=== PATIENT | female | born 1970 | race Caucasian/White ===

== ENCOUNTER → 2020-07-27 11:23 | Outpatient (CLI) | payer OTHER, SELFPAY ==
--- NOTE | 2020-07-27 | DI.MRI.S_ITS ---
PROCEDURE: MR LUMBAR SPINE WO CON INDICATIONS: Spondylolisthesis, lumbar region TECHNIQUE: Noncontrast sagittal T1 spin echo and T2 fast echo, sagittal STIR, axial T1 and T2 fast spin echo through the lumbar spine. In cases with scoliosis, additional coronal T2 fast spin echo may be performed. COMPARISON: [facility] [place], CR, XR LUMBAR SPINE 2 OR 3 VIEWS, 07/15/2020, 15:58. FINDINGS: Image quality: Excellent. Alignment and Curvature: Trace degenerative retrolisthesis of L5 on S1. Trace degenerative anterolisthesis of L4 on L5. Bone Marrow: Marrow is of normal overall signal. No acute vertebral body compression fractures. Spinal Cord: Conus medullaris terminates at the L1 level. Visualized cord demonstrates normal signal and size. Paraspinous Soft Tissues: No paravertebral masses. T12-L1: No canal stenosis or foraminal stenosis. L1-L2: No canal stenosis or foraminal stenosis. L2-L3: Mild posterior disc bulge without canal stenosis. Right foraminal annulus tear associated with disc bulge and mild right foraminal narrowing. L3-L4: Posterior annulus tear associated with moderate diffuse disc bulge. Minimal superimposed right paracentral disc protrusion. Mild facet hypertrophy. No central canal stenosis. Bilateral foraminal disc bulges. Mild bilateral foraminal narrowing. L4-L5: Diffuse disc bulge. Trace anterolisthesis of L4 on L5. Prominent bilateral facet hypertrophy. Moderate canal stenosis. Mild left foraminal stenosis. L5-S1: Severe disc height loss. Mild posterior disc bulge. Facet hypertrophy. No significant canal stenosis. Moderate bilateral foraminal narrowing with mild flattening deformity on the exiting bilateral L5 nerve roots. IMPRESSION: 1. There is a right foraminal annulus tear at L2-L3. There is a posterior annulus tear at L3-L4. 2. There is moderate canal stenosis at L4-L5. 3. There is prominent bilateral facet arthropathy at L4-L5. There is facet arthropathy at L5-S1 as well. 4. Moderate bilateral foraminal narrowing at L5-S1. Dictated by: Jayden Cam M.D. on 07/28/2020 at 9:27 Approved by: Jayden Cam M.D. on 07/28/2020 at 9:34
== END ==
PROVIDERS: Referring Provider Orthopaedic Surgery Orthopaedic Surgery of the Spine; Visit Provider Orthopaedic Surgery Orthopaedic Surgery of the Spine
DX: M43.16 Spondylolisthesis, lumbar region (principal); M48.061 Spinal stenosis, lumbar region without neurogenic claudication; M48.07 Spinal stenosis, lumbosacral region; M47.816 Spondylosis without myelopathy or radiculopathy, lumbar region; M47.817 Spondylosis without myelopathy or radiculopathy, lumbosacral region
CPT/HCPCS: 72148

== ENCOUNTER → 2020-09-02 12:05 | Outpatient (CLI) | payer OTHER, SELFPAY ==
[2020-09-02 12:36] LABS: Add Manual Diff / Slide Review NO; Basophils Absolute Auto 0 /uL (0-100); Basophils Percent Auto 0.6 % (0-2); Eosinophils Absolute Auto 100 /uL (0-450); Eosinophils Percent Auto 0.8 % (2-4); Hematocrit 36.3 % (36-46); Lymphocytes Absolute Auto 2400 /uL (1100-4500); Lymphocytes Percent Auto 36.7 % (25-40); Mean Corpuscular HGB Conc 33.1 % (30-36); Mean Corpuscular Hemoglobin 28.7 PG (26-34); Mean Corpuscular Volume 86.6 fL (80-100); Monocytes Absolute Auto 500 /uL (0-900); Monocytes Percent Auto 7.2 % (3-14); Neutrophils Absolute Auto 3600 /uL (1500-7000); Neutrophils Percent Auto 54.7 % (50-75); Platelet Count 289 X10^3/uL (150-400); Red Blood Cell Count 4.19 X10^6/uL (4.0-5.2); Red Cell Distribution Width 13.8 % (11.6-14.8); White Blood Cell Count 6.5 X10^3/uL (4.5-11.0)
[2020-09-02 13:26] LABS: BUN Creatinine Ratio 24.1 (6-22); Blood Urea Nitrogen 13 mg/dL (7-17); Calcium 9.7 mg/dL (8.4-10.2); Carbon Dioxide 28 mmol/L (22-32); Chloride 103 mmol/L (98-107); Estimated Glomerular Filt Rate > 60.0 mL/min (>60); Glucose 91 mg/dL (70-100); HEMOLYSIS < 15 (0-50); Potassium 4.7 mmol/L (3.4-5.1); Sodium 139 mmol/L (137-145)
== END ==
PROVIDERS: Referring Provider Orthopaedic Surgery Orthopaedic Surgery of the Spine; Visit Provider Orthopaedic Surgery Orthopaedic Surgery of the Spine
DX: Z01.818 Encounter for other preprocedural examination (principal); Z01.812 Encounter for preprocedural laboratory examination
CPT/HCPCS: 36415; 80048; 85025; 93005

== ENCOUNTER → 2020-09-08 09:18 | Outpatient (CLI) | payer OTHER, SELFPAY ==
[2020-09-08 11:43] LABS: COVID19 -Nasal RAPID Negative (Negative)
== END ==
PROVIDERS: Visit Provider Student in an Organized Health Care Education/Training Program
DX: Z01.812 Encounter for preprocedural laboratory examination (principal); Z20.822 Contact with and (suspected) exposure to COVID-19
CPT/HCPCS: 87635

== ENCOUNTER 2020-09-10 11:02 | Inpatient (IN) | payer OTHER, SELFPAY ==
[2020-09-03 09:45] VITALS: BMI 28.0
[2020-09-10] VITALS (23 sets, daily range): BP systolic 108–153; BP diastolic 75–99; PULSE 81–114; RESP 6–133; TEMP 36.1–37.1; O2SAT 90–99; BMI 28.0
[2020-09-10] MEDS: LACTATED RINGERS 1,000 ML 42 ML IV ×3 (11:32→18:16)
[2020-09-10] MEDS: ACETAMINOPHEN 325 MG TABLET 975 MG PO (11:41)
--- NOTE | 2020-09-10 12:06 | PM.PREOP ---
Pre-operative Note COVID-19 COVID-19 status: Negative Result date/Date tested (Pos, Neg/Pending): 09/08/20 Interval Note History & Physical reviewed/Exam performed by Physician: Yes Changes to H&P: No
[2020-09-10] MEDS: CEFAZOLIN 2 GM/100 ML FROZ.PIGGY IV (12:15)
--- NOTE | 2020-09-10 13:02 | SUR.OPER ---
Prone on spine table, head in foam head support, padded chest and pelvic supports, gel pad at knees, lower legs supported by pillows; nipples, genitalia and toes free of pressure, arms secured on foam padded arm boards at <90 degrees abduction. Tape over blanket at thigh secured to table.
[2020-09-10] MEDS: BUPIVACAINE 0.25% W/ EPI 30 ML VIAL INJ (13:32)
[2020-09-10] MEDS: BUPIVACAINE LIPOSOME 266 MG/20 ML VIAL INJ (13:33)
--- NOTE | 2020-09-10 16:02 | DI.RAD.S_ITS ---
PROCEDURE: XR LUMBAR SPINE 2-3V INDICATIONS: L4-5, L5-S1 TLIF TECHNIQUE: Low resolution intraoperative spot films of the lower lumbar spine were obtained COMPARISON: None. FINDINGS: Low resolution imaging shows posterior betsy and screw instrumentation at L4, L5 and S1 with interbody graft cages positioned at L4-5 and L5-S1. IMPRESSION: L4-5 and L5-S1 discectomy and posterior instrumentation intraoperative imaging Dictated by: Michael Klein M.D. on 09/10/2020 at 17:38 Approved by: Michael Klein M.D. on 09/10/2020 at 17:42
[2020-09-10] MEDS: CEFAZOLIN 1 GM VIAL 2 GM IV (16:19)
--- NOTE | 2020-09-10 16:24 | PM.OP.1 ---
Operative Date/Time/Diagnoses Date of procedure: 09/10/20 Time of procedure: 13:02 Pre-op diagnosis: 1. L4-5, L5-S1 spinal stenosis 2. L4-5, L5-S1 spondylosis with radiculopathy Post-op diagnosis: same Procedure & Clinicians Procedure: 1. L4-5, L5-S1 Postero-lateral and posterior interbody fusion 2. L4-5, L5-S1 interbody cage placement. 3. L4-5, L5-S1 decompressive laminectomy with bilateral facetecomies 4. L4-5, L5-S1 Posterior segmental instrumentation 5. [place] of bone marrow from iliac crest 6. Utilization of microsurgical technique and operating microscope Same procedure as scheduled: Yes Indications: Patient has been having chronic back pain and worsening lumbar radiculopathy. Patient failed multiple conservative management with worsening pain weakness and numbness in her lower extremity. Patient has been having difficulty performing activity of daily living. After discussing risks benefits of treatment options, patient elected proceed with surgery. Surgeon: Ayaka Payan Convertible Top Installer: Herbie Damon Click Yes if Unassisted: No Anesthesia Type: General Operative Notes Closure Type: primary Specimen(s): none sent Prosthetic devices, grafts, tissues, transplants, or devices: Globus revolve screws, Rise cages Applied: catheter Estimated Blood Loss (mL): 200 Blood products transfused: none Procedure in detail: Patient was seen in the preoperative area. Risks and benefits of the surgery was discussed with the patient. Informed consent was obtained from the patient and placed in the chart. Surgical site was marked. Patient was taken to the operative room. General anesthesia was administered. Prophylactic antibiotic was given to the patient less than 30 min before the incision was made. Patient was placed into a prone position on the Farooq table. Patient's back was then prepped and draped in the sterile fashion. Time-out was performed at this time. Using AP and lateral C-arm imaging the interval between L4-S1 was identified and marked on patient's back. A 2 inch incision 2 in from midline was made on the right side first. The fascia was incised in line with skin incision. Globus MARS retractors was placed inside the incision and docked onto the L4 and L5 lamina. Using microsurgical technique and operating microscope, a L4 and L5 laminectomy and L4-5 L5-S1 facetectomy was performed using a Kerrison rongeur. During the process of decompression more than 75% of bilateral L4-5 L5-S1 facets were removed in order to decompress the spinal canal and the lateral recess. The L4-5 L5-S1 level was grossly unstable after the decompression was completed and requiring the fusion procedure. The disc space at L4-5, L5-S1 was identified. And a total diskectomy was performed at L4-5, L5-S1 level. The endplates were decorticated using a rasp and shaver. The total diskectomy and decortication was performed at L4-5, L5-S1 level in order to to accomplish a L4-5, L5-S1 fusion. The local bone from the laminectomy and facetectomy was saved for local bone grafting. After the total diskectomy and decortication was completed, Trifecta bone graft material was combined with local bone that was harvested earlier. At this time, a separate skin is incision was made over the iliac crest. A Jamshidi needle was inserted into the iliac crest through a separate skin incision. 5 cc of bone marrow aspiration was obtained through the separate skin incision using a Jamshidi needle from the iliac crest. The bone marrow aspiration was combined with local bone and the Trifecta bone grafting material. The bone grafting material was placed into the L4-5, L5-S1 interbody space along with two cages, one expandable cage at each level. The cages were expanded to their maximum height using the torque limiting screwdriver. At this time a mirror image incision was made on the left side. The fascia was incised in line with the skin incision. Globus MARS retractor was inserted and docked onto the L4-5, L5-S1 posterolateral gutter. Using the power drill, posterior-lateral decortication was performed at L4-5, L5-S1 level until bleeding cortical bone was identified. The remaining bone grafting material was placed into the L4-5 L5-S1 posterior lateral gutter he order to accomplish posterolateral fusion at the L4-5 L5-S1 levels. Using the double C-arm technique, pedicle screws were placed into the L4, L5, S1 pedicles bilaterally. This was done by placing the Jamshidi needle into the pedicles, then placing the guidewires over the Jamshidi needle, and finally placing the cannulated screws over the guidewires bilaterally. After the pedicle screws were placed, 2 titanium rods was locked into the heads of the pedicle screws using locking caps and torque limiting screwdriver. Total 6 pedicles screws were placed. After all the hardware was placed, and confirmed with AP and lateral C-arm imaging, the wound was then irrigated with sterile normal saline and packed with Ray-Nicolas gauze for 3 min to accomplish hemostasis. After the gauze was removed the deep fascia was closed with #1 Vicryl suture. The subcutaneous layer was closed with 2-0 Vicryl. The skin was closed with skin kanchan. Patient tolerated the procedure well. There were no complications. Complications: none Post-operative Condition: stable Disposition: PACU Plan for aftercare: Admit to inpatient hospital
[2020-09-10] MEDS: diphenhydrAMINE 50 MG/ML VIAL 25 MG IV (16:51)
[2020-09-10] MEDS: HYDROMORPHONE 2 MG INJ IV ×4 (16:57→17:59)
[2020-09-10] MEDS: fentaNYL 100 MCG/2 ML INJ IV (17:15)
[2020-09-10] MEDS: hydrOXYzine pamoate 25 MG CAPSULE PO ×2 (17:23→20:37)
[2020-09-10] MEDS: OXYCODONE IR 5 MG TABLET PO (17:23)
[2020-09-10] MEDS: LORazepam 2 MG/ML INJ 0.5 MG IV (17:50)
--- NOTE | 2020-09-10 18:04 | SUR.PHASEI ---
Providing coverage for DISTRIBUTION ESTIMATOR to call report and break relief. Pt sleeping intermittently, arouses easily to voice.
--- NOTE | 2020-09-10 18:16 | SUR.PHASEI ---
Addendum entered by Sarah Way R.N. 09/10/20 18:19: Pauly Gupta RN requested pt to be signed out (she did not take a break). Pt stable, transported on O2. Original Note: entered 2nd IV bag - see anesthesia record for time hung. MAR would not permit the time hung to be edited. Preparing to transport by Pauly Gupta RN. She will complete the charting.
[2020-09-10] MEDS: SODIUM CHLORIDE 0.9% 1,000 ML 100 ML IV (19:13)
[2020-09-10] MEDS: HYDROMORPHONE 0.5 MG INJ IV (20:37)
[2020-09-10] MEDS: lamoTRIgine 100 MG TABLET 200 MG PO (20:49)
[2020-09-10] MEDS: SERTRALINE 50 MG TABLET 100 MG PO (20:49)
[2020-09-10] MEDS: QUETIAPINE 100 MG TABLET 600 MG PO (20:49)
[2020-09-10] MEDS: SENNOSIDES 8.6 MG TABLET 17.2 MG PO (20:49)
[2020-09-10] MEDS: DOCUSATE 100 MG CAPSULE PO (20:50)
[2020-09-10] MEDS: OXYCODONE IR 5 MG TABLET 10 MG PO (21:00)
--- NOTE | 2020-09-10 21:13 | PC.NURSE ---
Addendum entered by Loly Tate R.N. 09/10/20 22:34: After numerous repositions patient is now sleeping. O2 sensor on, sats 93% on RA while sleeping. Addendum entered by Loly Tate R.N. 09/10/20 22:11: Patient still in some pain 7/10 and crying. Gave po ativan to help her relax. Also had patient sit on the edge of the bed for a few minutes to see if that would help relieve her back discomfort. Got her repositioned back into the bed, patient a little more comfortable. Original Note: Patient up from PACU 1820, patient drowsy but woke easily. Drsg CDI. Patient able to sleep for a few hours after getting multiple meds down in pacu to help with pain. Patient recently woke up in severe pain 5-8/10. Started with ivp dilaudid but didnt really help much. Patient crying. Repositioned per patients request and applied ice. Po oxycodone given and will reevaluate pain in a few minutes. Patient has been A&O, calm and cooperative.
[2020-09-10] MEDS: LORazepam 0.5 MG TABLET 1 MG PO (21:37)
[2020-09-11] MEDS: hydrOXYzine pamoate 25 MG CAPSULE PO ×4 (00:28→20:20)
[2020-09-11] MEDS: OXYCODONE IR 5 MG TABLET 10 MG PO ×5 (00:28→16:19)
[2020-09-11] MEDS: LORazepam 0.5 MG TABLET 1 MG PO ×4 (00:28→16:27)
[2020-09-11] MEDS: HYDROMORPHONE 0.5 MG INJ IV ×6 (00:29→20:19)
[2020-09-11] MEDS: CEFAZOLIN 1 GM VIAL 2 GM IV ×2 (00:30→07:36)
[2020-09-11 01:10] VITALS: BP 123/71; PULSE 88; RESP 16; TEMP 36.3; O2SAT 93
[2020-09-11] MEDS: ACETAMINOPHEN 325 MG TABLET 650 MG PO ×3 (03:15→20:20)
--- NOTE | 2020-09-11 04:26 | PC.NURSE ---
School Cleaner Note-Patient was sleeping until 0030, woke up crying, restless, rating pain 9-10/10. Medicated with 0.5mg IV Dilaudid Q2HR prn, 10mg oxycocone Q3hr prn, 25mg PO Vistaril, 1mg PO Ativan prn as ordered in [place], ice packs applied to back drsg, multiple attempts to reposition with log rolls and keeping torso from twisting. Drsg reinforced x2 d/t rolling from frequent movement. CMS intact, VSS, Tian catheter patent. Dr Payan notified at 0340, informed about uncontrolled pain despite prn pain medications ordered. New orders received for addition pain coverage, see [place].
[2020-09-11] MEDS: OXYCODONE ER 10 MG TAB PO ×2 (05:40→20:37)
[2020-09-11] MEDS: diazePAM 5 MG TABLET PO ×3 (05:41→14:46)
[2020-09-11 05:50] VITALS: BP 123/64; PULSE 90; RESP 19; TEMP 36.2; O2SAT 96
[2020-09-11] MEDS: DOCUSATE 100 MG CAPSULE PO ×2 (07:45→20:36)
[2020-09-11 08:00] VITALS: BP 119/82; PULSE 109; RESP 18; TEMP 36.2; O2SAT 98
--- NOTE | 2020-09-11 08:51 | CM.DANOTE ---
DCP: Case received, EMR reviewed and met with patient. , Julia, was also at bedside. Introduced self and role. Was able to obtain information regarding patient's baseline activity status prior to her surgery. DCP assessment completed with information currently available. Patient is a 50 year old male who admitted yesterday morning to the care of the orthopedic team. PCP: Dr. Mcgowan/[facility]. Payer: confirmed: [facility]. Patient came to the hospital for a surgical procedure. She had L4-5, L5-S1 posteo-lateral interbody fusion. Patient has history of spondylolisthesis of the lumbar region. Met briefly with patient and , Julia in the room. She was awake laying in bed, having discomfort. Confirmed that her and her reside in [place]. He is in the [employer], [facility]. She has a FWW with her, but stated she had not used prior to surgery. She has been independent at her baseline. P: DCP to continue to follow. Will see how she does with P.T. The goal is for her to go home when she is medically stable and cleared by P.T. Trish Ellis RN/Chief Underwriter
--- NOTE | 2020-09-11 09:20 | PT.IIE ---
Current Diagnoses Spondylolisthesis, lumbar region (09/10/20) Spinal stenosis, lumbar region without neurogenic claudication (09/10/20) Surgery Performed Operation Date: 09/10/20 13:15 Actual Procedures p L4-5, L5-S1 TLIF with posterior instrumentation - Ayaka Payan MD Surgical History (Last Reviewed 09/11/20 @ 10:26 by Herbie Damon PA-C) History of hysterectomy (2005) Hx of appendectomy Hx of bariatric surgery (2009) Hx of lithotripsy Hx of umbilical hernia repair Medical History (Last Reviewed 09/11/20 @ 10:26 by Herbie Damon PA-C) Arthritis Depression Easy bruisability Ectopic GI bleed (2015) Iron deficiency anemia Kidney stones Pneumonia PTSD (post-traumatic stress disorder) Physical Therapy Inpatient Evaluation/Re-Eval M1 PT/OT-IP Prior Functional Status Start: 09/11/20 12:59 Freq: NEEDED Status: Active Protocol: Document 09/11/20 09:20 AB (Rec: 09/11/20 13:09 [email or web address]) Medical Review Prior Functional Status Medical History Reviewed Yes Communication able to make needs known Mobility and Gait stated that she is independent with all mobilities and ambulation without AD Social History Household Members spouse,children Living Arrangements House Number of Floors (Floors) 3 or More Floors Number of Stairs To Enter/Railing? 3 platform steps to enter the house 8 steps with L rail ascending to bedroom level. Home Environment Standard Height Toilet,Walk in Shower Home Equipment Front Wheel Walker Employment Status Unemployed Additional Social History Comment pt's spouse will be off work to assist pt only for a few days but son will also be able to assist M2 PT-IP Current Condition Start: 09/11/20 12:59 Freq: NEEDED Status: Active Protocol: Document 09/11/20 09:20 AB (Rec: 09/11/20 13:09 AB [email or web address]) Physical Therapy Current Condition Current Condition Evaluation Date 09/11/20 Treatment Diagnosis s/p L4-5,L5S1 fusion/lami; difficulty in walking Onset Date 09/10/20 Precautions Lumbar Precautions Log Roll,No Twisting,Limit Bending,Lifting Restriction of 10 lbs,Gait Belt above Incisional Area M3 PT-IP Subjective Start: 09/11/20 12:59 Freq: NEEDED Status: Active Protocol: Document 09/11/20 09:20 AB (Rec: 09/11/20 13:09 [email or web address]) Subjective Physical Therapy Visit Type Type Initial Evaluation Visit Start Time 09:20 Visit Stop Time 10:10 Total Visit Minutes 50 Number of RETAIL DEPARTMENT SUPERVISOR Visits 0 Physical Therapy Visit Comments Patient Comments agreeable to do PT; pt is very sleepy and requires constant cues to stay awake; spouse in room Therapy Pain Assessment Pain When Pain Assessed At Rest Pain Present Pain Present Pain Reported Location Back Intensity 5 Scale Used Numeric (0 - 10) Pain Management Techniques Apply Cold,Distraction, Modification of Treatment,Re- positioning,Timing of Activity with Medications M4 PT-IP Mobility and Gait Start: 09/11/20 12:59 Freq: NEEDED Status: Active Protocol: Document 09/11/20 09:20 (Rec: 09/11/20 13:09 [id number]) PT-Bed Mobility Assessment Rolling Type of Rolling Log Rolling Level of Assist Maximal Assistance Supine to Sit Supine to Sit Maximum Assistance Scooting Scooting to Edge of Bed Maximum Assistance PT-Transfer Assessment Sit to and From Stand Sit to and from Stand Maximum Assistance,1 Person Assistance,Use of Upper Extremities Equipment Transfer Assistive Device Gait Belt,Front Wheeled Walker Orthotic/Prosthetic Devices or Brace: No Transfers Transfer Destination Chair Transfer Technique ambulated using FWW Transfer Ability Level of Assist Moderate Assistance,1 Person Assistance,Use of Upper Extremities Comments Mobility Comments educated pt on back precautions and log roll bed mobility. completed log roll supine to sit max A and max cues. pt required CGA to maintain sitting on EOB. completed sit to stand max A and cues and ambulated using FWW mod A and cues. agreed to sit up on chair. positioned on chair. call light and table placed within reach. unable to ambulate farther with c/o increase back pain. set up caregiver training at ~ 2pm today. Gait Assessment Gait Gait Assistance Required: Moderate Assistance Distance (Feet) 12 Able to Maintain Weight Bearing Status Yes During Gait Assistive Devices Assistive Device Gait Belt,Front Wheeled Walker Orthotic/Prosthetic Devices or Brace: No Gait Deviations General Gait Pattern Decreased Stride Length, Decreased Feet Clearance,Step- to Gait Factors Limiting Gait Function Factors Limiting Gait Function Decreased Activity Tolerance, Decreased Strength,Difficulty Following Directions,Limited Range of Motion,Pain,Poor Balance,Poor Safety Awareness PT-Balance Assessment Sitting Balance and Reactions Static Sitting Balance Ability Good Dynamic Sitting Balance Ability Fair Standing Balance and Reactions Static Standing Balance Ability Fair Dynamic Standing Balance Ability Poor Device Used FWW M5 PT-IP Objective Assessments Start: 09/11/20 12:59 Freq: NEEDED Status: Active Protocol: Document 09/11/20 09:20 AB (Rec: 09/11/20 13:09 AB [email or web address]) Orientation Orientation/Cognition Level of Alertness Lethargic Orientation Name,Place,Situation Language Function Ability No Deficits Noted Safety Awareness Decreased Safety Awareness Memory Description Short Term Impaired Strength Lower Extremity Strength Hip 3+/5 Knee 3+/5 Muscle Tone Muscle Tone WNL Yes M6 PT-IP Treatment Start: 09/11/20 12:59 Freq: NEEDED Status: Active Protocol: Document 09/11/20 09:20 AB (Rec: 09/11/20 13:09 AB [email or web address]) Physical Therapy Treatment Education Education Provided Precautions,Weight Bearing Status,Post-Op Packet,Safety M7 PT-IP Assessment and Plan Start: 09/11/20 12:59 Freq: NEEDED Status: Active Protocol: Document 09/11/20 09:20 AB (Rec: 09/11/20 13:09 AB [email or web address]) PT Summary Assessment and Plan Potential Rehabilitation Potential Fair Status of Condition at Evaluation Evolving Summary Impairments Pain,ROM,Strength,Balance, Coordination,Sensation,Tone, Cognition,Bed Mobility, Transfers,Gait,Activity Tolerance Assessment Summary pt requiring mod to max A with mobility and uses FWW for ambulation mod A. pt was unable to tolerate much activity with c/o increase pain but also drowsy and having difficulty following directions. set up caregiver training at 2 pm today. will continue to assess progress for safe d/c plan. Goals Bed Mobility Goal Standby Assistance Transfer Goal Standby Assistance,Front Wheeled Walker Gait Goal Standby Assistance,Front Wheel Walker Gait Distance 150 Other Goals up/down 3 platform steps CGA up/down 8 steps L rail ascending CGA Days to Meet Goals 5 Frequency of Treatment Frequency Of Treatment Twice a Day Treatment Plan Physical Therapy Treatment Plan Bed Mobility Training,Transfer Training,Gait Training, Therapeutic Exercise,Balance Retraining,Post Op Education, Discharge Planning,Hot or Cold Pack,Neuromuscular Re-ed, Coordination Retraining,Manual Therapy Other Recommendations and Next Treatment caregiver training 145/2pm Focus today Precautions Lumbar Precautions Log Roll,No Twisting,Limit Bending,Lifting Restriction of 10 lbs,Gait Belt above Incisional Area Recommendations To Nursing Amount of Assist Needed 1 Person Assist Discharge Recommendations PT Discharge Recommendations Home with 22/11 Assist Available,Home Health,SNF Rehab Transportation Needs at Discharge Private Vehicle,Wheelchair/ Cabulance
--- NOTE | 2020-09-11 10:24 | P.PN_ITS ---
Subjective Subjective Date Patient Seen: 09/11/20 Time Patient Seen: 10:24 Interval history: Patient states she is in mild discomfort due to muscle spasms. At this time the patient denies fever, chills, nausea, chest pain, shortness of breath, or urinary retention. Patient reports good sensation throughout the bilateral lower extremities. Patient is apprehensive about working with physical therapy due to her pain level. Exam Vital Signs (past 8 hours): - 09/11/20 05:50 09/11/20 08:00 Temperature 97.1 F L 97.1 F L Pulse Rate 90 109 H Respiratory Rate 19 18 Blood Pressure 123/64 119/82 Pulse Oximetry 96 98 Oxygen Delivery Method Room Air Oxygen Flow Rate 0 Narrative Exam Narrative: 50-year-old female postop day 1. Patient is resting in chair, appears uncomfortable, and is alert and oriented x3. Skin is warm and dry, and the skin surrounding the incision site is free of erythema, warmth, induration, or discharge. Good sensation appreciated throughout the bilateral lower extremities to light touch. Ankle dorsiflexion, plantar flexion, eversion, inversion performed bilaterally without difficulty or discomfort. Calves are soft and nontender, negative Homans sign. Palpable pulses appreciated, capillary refill less than 2 seconds. No other signs of DVT appreciated at this time. Const General: cooperative, healthy appearing and comfortable Resp Effort & Inspection: normal respiratory effort and able to speak in complete sentences Skin General: no rashes or lesions noted [facility] Medical History Arthritis Depression Easy bruisability Ectopic GI bleed (2015) Iron deficiency anemia Kidney stones Pneumonia PTSD (post-traumatic stress disorder) Surgical History History of hysterectomy (2005) Hx of appendectomy Hx of bariatric surgery (2009) Hx of lithotripsy Hx of umbilical hernia repair Social History household members: spouse and children Smoking Status: Current some day smoker alcohol intake: former Assessment & Plan Post-op Postoperative Procedures: Procedures Operation Date: 09/10/20 13:15 Actual Procedures Side Surgeon p L4-5, L5-S1 TLIF with posterior instrumentation Ayaka Payan MD Postoperative day: 1 Postoperative status: doing well Postoperative plan: ambulate Postoperative plan narrative: Patient is to continue working with physical therapy on ambulation with the assistance of a front wheeled walker. Patient to remain weight-bearing as tolerated. Current pain management regimen is to be continued with the addition of Vistaril for her complaints of muscle spasms. Patient possibly set for discharge tomorrow pending successful work with PT. Time Spent With Patient Time with patient: 15-24 minutes Quality VTE Deep Vein Thrombosis/Pulmonary Embolism Present on Admission: No
[2020-09-11 12:00] VITALS: BP 129/78; PULSE 100; RESP 17; TEMP 36.9; O2SAT 100
--- NOTE | 2020-09-11 13:31 | PC.NURSE ---
Addendum entered by Christa Howell R.N. 09/11/20 14:48: after working with PT and returning to bed- pt c/o muscle spasms- medicated with 5mg po valium at this time Addendum entered by Christa Howell R.N. 09/11/20 14:32: removed catheter and pt has not voided as of yet- clean dressing applied to incisions on back and presently working with PT/OT- pt appears much more comfortable this afternoon Original Note: pt ambulated around icu nrses station unassisted and using walker- pain finally under some control at present and vistaril helpful for increased muscle spasms- taking small amount of po and walls remains patent - pt agreeable to have walls removed next time she gets up from bed- dressing removed as it was rather bulky and is open to air- will replace with island barrier dressing upon next ambulation session
--- NOTE | 2020-09-11 14:00 | PT.IPTN ---
Current Diagnoses Spondylolisthesis, lumbar region (09/10/20) Spinal stenosis, lumbar region without neurogenic claudication (09/10/20) Surgery Performed Operation Date: 09/10/20 13:15 Actual Procedures p L4-5, L5-S1 TLIF with posterior instrumentation - Ayaka Payan MD Physical Therapy Treatment Note M2 PT-IP Current Condition Start: 09/11/20 12:59 Freq: NEEDED Status: Active Protocol: Document 09/11/20 09:20 AB (Rec: 09/11/20 13:09 AB [email or web address]) Physical Therapy Current Condition Current Condition Evaluation Date 09/11/20 Treatment Diagnosis s/p L4-5,L5S1 fusion/lami; difficulty in walking Onset Date 09/10/20 Precautions Lumbar Precautions Log Roll,No Twisting,Limit Bending,Lifting Restriction of 10 lbs,Gait Belt above Incisional Area M3 PT-IP Subjective Start: 09/11/20 12:59 Freq: NEEDED Status: Active Protocol: Document 09/11/20 14:00 AB (Rec: 09/11/20 15:30 AB [email or web address]) Subjective Physical Therapy Visit Type Type Treatment Note Visit Start Time 14:00 Visit Stop Time 14:45 Total Visit Minutes 45 Number of ARCHITECTURAL PROJECT CAPTAIN Visits 0 Physical Therapy Visit Comments Patient Comments agreeable to do PT Therapy Pain Assessment Pain When Pain Assessed At Rest Pain Present Pain Present Pain Reported Location Back Intensity 4 Scale Used Numeric (0 - 10) Pain Management Techniques Apply Cold,Modification of Treatment,Re-positioning, Timing of Activity with Medications M4 PT-IP Mobility and Gait Start: 09/11/20 12:59 Freq: NEEDED Status: Active Protocol: Document 09/11/20 14:00 AB (Rec: 09/11/20 15:30 AB [id number]) PT-Bed Mobility Assessment Rolling Type of Rolling Log Rolling Level of Assist Standby Assistance Supine to Sit Supine to Sit Standby Assistance Sit to Supine Sit to Supine Standby Assistance PT-Transfer Assessment Sit to and From Stand Sit to and from Stand Minimal Assistance,1 Person Assistance,Use of Upper Extremities Equipment Transfer Assistive Device Gait Belt,Front Wheeled Walker Orthotic/Prosthetic Devices or Brace: No Transfers Transfer Destination Bed Transfer Technique ambulated using fWW Transfer Ability Level of Assist Standby Assistance,Contact Guard Assistance,1 Person Assistance,Use of Upper Extremities Comments Mobility Comments pt up in room with nurse. pt using FWW walking in room with nurse. spouse in room as well. PT took over pt's care after nurse. intructed pt to sit on EOB. caregiver training conducted and informed spouse on how to assist pt. pt was able to completed log roll sit<>supine SBA and cues. educated spouse on how to put safety belt on and how to assist pt. spouse was able to put safety belt on , assisted pt with sit to stand min A. pt unsteady with initial standing and demonstrates difficulty with sit to stand. educated pt on techniques. pt completed sit <>stand x 5 reps min A and cues. pt ambulated in the hallway using FWW with spouse assisting. educated pt on stair climbing. completed up/down platform step using fWW min A and with spouse assisting. completed x 2 sets. also completed up/ down 3 steps with pt holding on to L rail with B hands. spouse assisted pt. assisted pt back to room. requested to go back to bed. completed sit to stand from chair min A and ambulated using FWW CGA. completed sit to supine SBA. positioned pt in bed. call light and table placed within reach. Gait Assessment Gait Gait Assistance Required: Standby Assistance,Contact Guard Assist Distance (Feet) 200 Able to Maintain Weight Bearing Status Yes During Gait Assistive Devices Assistive Device Gait Belt,Front Wheeled Walker Orthotic/Prosthetic Devices or Brace: No Gait Deviations General Gait Pattern Antalgic,Decreased Stride Length,Decreased Feet Clearance Factors Limiting Gait Function Factors Limiting Gait Function Decreased Activity Tolerance, Limited Range of Motion,Pain, Poor Balance Stair Climbing Assessment Evaluation Level of Assist On Stairs Minimal Assistance,1 Person Assistance Devices Stair Climbing Assistive Devices Front Wheel Walker Technique/Endurance Stair Climbing Direction Ascend and Descend Stair Climbing Technique Step to Step Number of Steps Climbed 3 Stair Climbing Set # Repetitions (reps) 1 M5 PT-IP Objective Assessments Start: 09/11/20 12:59 Freq: NEEDED Status: Active Protocol: Document 09/11/20 09:20 AB (Rec: 09/11/20 13:09 AB [id number]) Orientation Orientation/Cognition Level of Alertness Lethargic Orientation Name,Place,Situation Language Function Ability No Deficits Noted Safety Awareness Decreased Safety Awareness Memory Description Short Term Impaired Strength Lower Extremity Strength Hip 3+/5 Knee 3+/5 Muscle Tone Muscle Tone WNL Yes M6 PT-IP Treatment Start: 09/11/20 12:59 Freq: NEEDED Status: Active Protocol: Document 09/11/20 14:00 AB (Rec: 09/11/20 15:30 AB [id number]) Physical Therapy Treatment Education Education Provided Precautions,Safety M7 PT-IP Assessment and Plan Start: 09/11/20 12:59 Freq: NEEDED Status: Active Protocol: Document 09/11/20 14:00 AB (Rec: 09/11/20 15:30 AB [id number]) PT Summary Assessment and Plan Potential Rehabilitation Potential Good Summary Impairments Pain,ROM,Strength,Balance, Coordination,Sensation,Tone, Cognition,Bed Mobility, Transfers,Gait,Activity Tolerance Progress Towards Goals Slow Progress due to Pain Assessment Summary caregiver training conducted and spouse was able to assist pt safely. Will conduct further caregiver training tomorrow for carryover of techniques and safety. will continue to assess progress. pt may go home when medically stable. Goals Bed Mobility Goal Standby Assistance Transfer Goal Standby Assistance,Front Wheeled Walker Gait Goal Standby Assistance,Front Wheel Walker Gait Distance 150 Other Goals up/down 3 platform steps CGA up/down 8 steps L rail ascending CGA Days to Meet Goals 5 Frequency of Treatment Frequency Of Treatment Twice a Day Treatment Plan Physical Therapy Treatment Plan Bed Mobility Training,Transfer Training,Gait Training, Therapeutic Exercise,Balance Retraining,Post Op Education, Discharge Planning,Hot or Cold Pack,Neuromuscular Re-ed, Coordination Retraining,Manual Therapy Other Recommendations and Next Treatment caregiver training: spouse Focus staying in overnight with pt Precautions Lumbar Precautions Log Roll,No Twisting,Limit Bending,Lifting Restriction of 10 lbs,Gait Belt above Incisional Area Recommendations To Nursing Amount of Assist Needed 1 Person Assist Discharge Recommendations PT Discharge Recommendations Home with Assistance Transportation Needs at Discharge Private Vehicle
--- NOTE | 2020-09-11 14:41 | OT.IPNOTE ---
Pt just finished seeing PT for caregiver training, back in bed, and not wanting to do OT eval at this time. To see pt tomorrow for OT eval.
[2020-09-11 16:10] VITALS: BP 130/66; PULSE 97; RESP 22; TEMP 36.3; O2SAT 100
[2020-09-11] MEDS: IBUPROFEN 600 MG TABLET PO (16:59)
--- NOTE | 2020-09-11 17:19 | PC.NURSE ---
Pt c/o severe muscle spasm in back and upper thighs, Ativan and OXYcodone 10mg PO given without relief. Dr. Payan called and orders received for PO Advil as pt states that this helps her pain at home. Med given and comfort measures provided.
[2020-09-11 20:05] VITALS: BP 117/72; PULSE 94; RESP 18; TEMP 36.6; O2SAT 99
[2020-09-11 20:32] LABS: Hematocrit 31.6 % (36-46); Hemoglobin 10.5 g/dL (12.0-16.0)
[2020-09-11] MEDS: QUETIAPINE 100 MG TABLET 600 MG PO (20:36)
[2020-09-11] MEDS: lamoTRIgine 100 MG TABLET 200 MG PO (20:36)
[2020-09-11] MEDS: SENNOSIDES 8.6 MG TABLET 17.2 MG PO (20:36)
[2020-09-11] MEDS: SERTRALINE 50 MG TABLET 100 MG PO (20:37)
--- NOTE | 2020-09-11 21:56 | PC.NURSE ---
Pt states that pain is relieved to 2/10. O2 Sats monitored closely - emotional support given.
[2020-09-12 01:26] VITALS: BP 90/52; PULSE 95; RESP 18; TEMP 37.9; O2SAT 99
[2020-09-12] MEDS: OXYCODONE IR 5 MG TABLET 10 MG PO ×5 (02:47→14:54)
[2020-09-12] MEDS: hydrOXYzine pamoate 25 MG CAPSULE PO ×3 (02:47→14:54)
--- NOTE | 2020-09-12 03:25 | PC.NURSE ---
0325- Patient requesting IV medication. Patient informed that we are trying not to give pain control IV because she cannot go home on IV medication. Patient verbalizes understanding. Will monitor.
[2020-09-12] MEDS: ACETAMINOPHEN 325 MG TABLET 650 MG PO ×2 (06:11→14:54)
[2020-09-12 06:12] VITALS: BP 110/67; PULSE 100; RESP 20; TEMP 36.7; O2SAT 100
[2020-09-12] MEDS: diazePAM 5 MG TABLET PO ×2 (06:23→11:35)
--- NOTE | 2020-09-12 07:33 | P.PN_ITS ---
Subjective Subjective Date Patient Seen: 09/12/20 Time Patient Seen: 07:33 Interval history: Patient states she is doing well overall and feels her condition is improving since yesterday. At this time the patient denies fever, chills, nausea, chest pain, shortness of breath, or urinary retention. Patient reports good sensation throughout the bilateral lower extremities. She explains that she has worked with PT yesterday on ambulation in feels that she is prog ressing well. Exam Vital Signs (past 8 hours): - 09/12/20 01:26 09/12/20 06:12 Temperature 100.2 F H 98.1 F Pulse Rate 95 H 100 H Respiratory Rate 18 20 Blood Pressure 90/52 L 110/67 Pulse Oximetry 99 100 Oxygen Delivery Method Room Air Oxygen Flow Rate 0 Narrative Exam Narrative: Pleasant 50-year-old female postop day 2. Patient is resting comfortably in chair, is in no acute distress, is alert and oriented x3. Skin is warm and dry, and the skin surrounding the incision site is free of erythema, warmth, induration, or discharge. Good sensation appreciated throughout the bilateral lower extremities to light touch. Ankle dorsiflexion, plantar flexion, eversion, inversion performed bilaterally without difficulty or discomfort. Calves are soft nontender, negative Homans sign. Capillary refill less than 2 seconds, palpable pulses appreciated. No other signs of DVT appreciated at this time. Const General: cooperative, healthy appearing and comfortable Resp Effort & Inspection: normal respiratory effort and able to speak in complete sentences Skin General: no rashes or lesions noted Objective Labs Result Diagrams: 09/11/20 20:17 Labs: Laboratory Results - last 24 hr 09/11/20 20:17 Hgb 10.5 L Hct 31.6 L PFSH Medical History Arthritis Depression Easy bruisability Ectopic GI bleed (2015) Iron deficiency anemia Kidney stones Pneumonia PTSD (post-traumatic stress disorder) Surgical History History of hysterectomy (2005) Hx of appendectomy Hx of bariatric surgery (2009) Hx of lithotripsy Hx of umbilical hernia repair Social History household members: spouse and children Smoking Status: Current some day smoker alcohol intake: former Assessment & Plan Post-op Postoperative Procedures: Procedures Operation Date: 09/10/20 13:15 Actual Procedures Side Surgeon p L4-5, L5-S1 TLIF with posterior instrumentation Ayaka Payan MD Postoperative day: 2 Postoperative status: doing well Postoperative plan: ambulate Postoperative plan narrative: Patient is to continue working on ambulation with PT. Patient is to be weight-bearing as tolerated with the assistance of a front wheeled walker. Current pain management regimen is to be continued as it is adequately controlling her pain level at this time. Discharge home likely today pending successful work with PT. Quality VTE Deep Vein Thrombosis/Pulmonary Embolism Present on Admission: No
[2020-09-12] MEDS: DOCUSATE 100 MG CAPSULE PO (08:35)
[2020-09-12] MEDS: IBUPROFEN 600 MG TABLET PO (08:36)
[2020-09-12] MEDS: OXYCODONE ER 10 MG TAB PO (08:36)
--- NOTE | 2020-09-12 09:28 | OT.IP.EVAL ---
Current Diagnoses Spondylolisthesis, lumbar region (09/10/20) Spinal stenosis, lumbar region without neurogenic claudication (09/10/20) Surgery Performed Operation Date: 09/10/20 13:15 Actual Procedures p L4-5, L5-S1 TLIF with posterior instrumentation - Ayaka Payan MD Past Medical History (Last Reviewed 09/12/20 @ 07:35 by Herbie Damon PA-C) Arthritis Depression Easy bruisability Ectopic GI bleed (2015) Iron deficiency anemia Kidney stones Pneumonia PTSD (post-traumatic stress disorder) Surgical History (Last Reviewed 09/12/20 @ 07:35 by Herbie Damon PA-C) History of hysterectomy (2005) Hx of appendectomy Hx of bariatric surgery (2009) Hx of lithotripsy Hx of umbilical hernia repair Occupational Therapy Inpatient Evaluation/Re-Eval M1 PT/OT-IP Prior Functional Status Start: 09/11/20 12:59 Freq: NEEDED Status: Active Protocol: Document 09/12/20 09:43 [facility] (Rec: 09/12/20 10:01 [facility] [id number]) Medical Review Prior Functional Status Medical History Reviewed Yes Communication able to make needs known Mobility and Gait stated that she is independent with all mobilities and ambulation without AD Activities of Daily Living and IADL's Pt having more difficulties with ADl's and IADl needs. Social History Household Members spouse,children Living Arrangements House Number of Floors (Floors) 3 or More Floors Number of Stairs To Enter/Railing? 3 platform steps to enter the house 8 steps with L rail ascending to bedroom level. Home Environment Standard Height Toilet,Walk in Shower Home Equipment Front Wheel Walker Employment Status Unemployed Additional Social History Comment pt's spouse will be off work to assist pt only for a few days but son will also be able to assist M2 OT-IP Current Condition Start: 09/12/20 09:43 Freq: Status: Active Protocol: Document 09/12/20 09:43 [facility] (Rec: 09/12/20 10:01 [facility] [id number]) Occupational Therapy Current Condition Current Condition Evaluation Date 09/12/20 Treatment Diagnosis s/p L4-5, L5-S1 TLIF Diagnosis Onset Date 09/10/20 Post Operative Precautions Lumbar Precautions Log Roll,No Twisting,Limit Bending,Lifting Restriction of 10 lbs,Gait Belt above Incisional Area M3 OT- IP Subjective and Pain Start: 09/12/20 09:43 Freq: Status: Active Protocol: Document 09/12/20 09:43 [facility] (Rec: 09/12/20 10:01 [facility] [id number]) OT- Subjective Occupational Therapy Visit Type Type Initial Evaluation Visit Start Time 08:50 Visit Stop Time 09:28 Total Visit Minutes 38 Occupational Therapy Visit Comments Patient Comments Pt agreed to get up for OT eval but not wanting to shower until her comes. Patient/Caregiver Goals To go home. OT Pain Assessment Pain When Pain Assessed At Rest Pain Present Pain Present Pain Reported Location Back Intensity 5 Scale Used Numeric (0 - 10) M4 OT- IP ADL's Start: 09/12/20 09:43 Freq: Status: Active Protocol: Document 09/12/20 09:43 [facility] (Rec: 09/12/20 10:01 [facility] [id number]) OT NBG-Ouin-[place] General Evaluation Self-Feeding Ability Independent OT ADL-Grooming General Evaluation Grooming Ability Standby Assistance Areas Needing Assistance Retrieving/Set-up of Grooming Items OT ADL-Oral Care General Eval Oral Care Ability Standby Assistance Comments Oral Care Comments Pt able to follow education to spit into a cup for oral care so to best follow her back precautions. OT ADL-Dressing General Eval Lower Body Dressing Ability Standby Assistance,Maximum Assistance Comments OT Dressing Comments Able to show and issue pt LB dresing equipment and able to milton doff her socks with increased. OT ADL-Toileting General Evaluation Toileting Ability Moderate Assistance Comments OT Toileting Comments Pt not able to reach to wipe if having a bowel movement during simulation with OT. Pt states her will assist her. Able to suggest getting a toilet paper aid or bidet as pt thinking about getting one. OT ADL-Bathing Comments OT Bathing Comments Pt not wanting to shower at this time and prefers for her . Pt agrees would be best to get a shower chair and hand held shower spray. M5 OT- IP IADL's Start: 09/12/20 09:43 Freq: Status: Active Protocol: Document 09/12/20 09:43 [facility] (Rec: 09/12/20 10:01 [facility] [id number]) OT-Instrumental Activities of Daily Living Home Safety Awareness Home Safety Comments Pt states her and son to assist her for all her needs. Pt agrees with therapist that she is not thinking very well and groggy from pain medications. M6 OT- IP Functional Cognition Start: 09/12/20 09:43 Freq: Status: Active Protocol: Document 09/12/20 09:43 [facility] (Rec: 09/12/20 10:01 [facility] [id number]) Cognitive Factors Limiting Selfcare Function Cognitive Ability Level of Alertness Alert Patient Orientation Name,Age,Birthday,Month,Date, Year,Day of Week,Place, Situation Attention Span Ability Capable of Focused Attention, Capable of Sustained Attention Ability to Follow Commands Able to Follow One Step Commands Safety Awareness Decreased Recall of Precautions,Decreased Ability to Apply Precautions, Underestimates Need for Assistance Cognitive Comments Cognitive Assessment Comments Pt a bit groggy and needing vc for safety to follow her back precautions. Pt needing cues to not turn around at the doorway and back up to the toilet, but rather to get closer to the toilet and then turn around. M7 OT- IP Mobility and Balance Start: 09/12/20:43 Freq: Status: Active Protocol: Document 09/12/20:43 [facility] (Rec: 09/12/20 10:01 [facility] [id number]) OT-Transfer Assessment Sit to and From Stand Sit to and from Stand Standby Assistance Transfers Transfer Ability Standby Assistance Technique Transfer Destination Chair,Toilet Transfer Technique Stand Step Pivot Devices Transfer Assistive Devices Gait Belt,Front Wheeled Walker Comments Mobility Comments SBA with FWW in the room for mobility needs. OT- Balance Assessment Sitting Balance and Reactions Static Sitting Balance Ability Normal Dynamic Sitting Balance Ability Good Standing Balance and Reactions Static Standing Balance Ability Good M8 OT- IP Objective Assessments Start: 09/12/20:43 Freq: Status: Active Protocol: Document 09/12/20 09:43 [facility] (Rec: 09/12/20 10:01 [facility] [id number]) OT-Muscle Tone Assessment Muscle Tone WNL Yes M9 OT- IP Assessment and Plan Start: 09/12/20:43 Freq: Status: Active Protocol: Document 09/12/20 09:43 [facility] (Rec: 09/12/20 10:01 [facility] [id number]) OT Summary Assessment and Plan Potential Rehabilitation Potential Excellent Analytic Complexity at Evaluation Low Summary OT Impairments Pain,Functional Cognition, Functional Mobility,Dressing, Toileting,Bathing,Toilet Transfers,Shower Transfers Progress Towards Goals Progressing Toward Goals Assessment Summary Pt low complexity and main barriers are steps, having difficulty to incorporate her back precautions, and needing safety cues for FWW use. Pt has a very supportive and son to assist pt with all her needs at home. Pt to go home when medically stable. Goals Grooming Goal Independent Dressing Goal Independent Toileting Goal Independent Bathing Goal Independent Toilet Transfer Goal Independent Shower Transfer Goal Independent Patient/Caregiver Education Goal Caregiver Independent Assisting Patient Days to Meet Goals 3 Frequency of Treatment Frequency Of Treatment Twice a Day Treatment Plan OT Treatment Plan ADL Training,Functional Cognition Training,Functional Mobility,Patient/Family Education,Discharge Planning Other Treatment Recommendations and Next Caregiver training, pt Treatment Focus not present when OT came to see pt for OT eval. Discharge Recommendations OT Discharge Recommendations Home with Assistance Home Equipment Needs shower chair Transportation Needs at Discharge Private Vehicle
--- NOTE | 2020-09-12 10:17 | OT.IP.TRT ---
Current Diagnoses Spondylolisthesis, lumbar region (09/10/20) Spinal stenosis, lumbar region without neurogenic claudication (09/10/20) Surgery Performed Operation Date: 09/10/20 13:15 Actual Procedures p L4-5, L5-S1 TLIF with posterior instrumentation - Ayaka Payan MD Occupational Therapy Treatment Note M2 OT-IP Current Condition Start: 09/12/20 09:43 Freq: Status: Active Protocol: Document 09/12/20 09:43 [facility] (Rec: 09/12/20 10:01 [facility] [id number]) Occupational Therapy Current Condition Current Condition Evaluation Date 09/12/20 Treatment Diagnosis s/p L4-5, L5-S1 TLIF Diagnosis Onset Date 09/10/20 Post Operative Precautions Lumbar Precautions Log Roll,No Twisting,Limit Bending,Lifting Restriction of 10 lbs,Gait Belt above Incisional Area M3 OT- IP Subjective and Pain Start: 09/12/20 09:43 Freq: Status: Active Protocol: Document 09/12/20 10:35 [facility] (Rec: 09/12/20 10:42 [facility] [id number]) OT- Subjective Occupational Therapy Visit Type Type Treatment Note Visit Start Time 10:17 Visit Stop Time 10:34 Total Visit Minutes 17 Occupational Therapy Visit Comments Patient Comments Pt's present to assist pt with showering . Patient/Caregiver Goals TO go home. OT Pain Assessment Pain When Pain Assessed During Mobility Pain Present Pain Present Pain Reported M4 OT- IP ADL's Start: 09/12/20 09:43 Freq: Status: Active Protocol: Document 09/12/20 10:35 [facility] (Rec: 09/12/20 10:42 [facility] [id number]) OT ADL-Dressing General Eval Upper Body Dressing Ability Standby Assistance Lower Body Dressing Ability Maximum Assistance Comments OT Dressing Comments Pt's able to assist pt for all dressing needs. Pt preferring to stand to dress versus sitting. Pt having good standing balance with FWW to be able to hand picker her foot so her able to get her underwear and pants on over her feet. OT ADL-Bathing Bathing Type Bathing Type Shower General Evaluation Bathing Ability Moderate Assistance Comments OT Bathing Comments Pt preferring to stand for the shower. Had a chair placed in back just in case pt having to sit down for safety. M5 OT- IP IADL's Start: 09/12/20 09:43 Freq: Status: Active Protocol: Document 09/12/20 09:43 [facility] (Rec: 09/12/20 10:01 [facility] [id number]) OT-Instrumental Activities of Daily Living Home Safety Awareness Home Safety Comments Pt states her and son to assist her for all her needs. Pt agrees with therapist that she is not thinking very well and groggy from pain medications. M6 OT- IP Functional Cognition Start: 09/12/20 09:43 Freq: Status: Active Protocol: Document 09/12/20 10:35 [facility] (Rec: 09/12/20 10:42 [facility] [id number]) Cognitive Factors Limiting Selfcare Function Cognitive Ability Level of Alertness Alert Patient Orientation Name,Age,Birthday,Month,Date, Year,Day of Week,Place, Situation Attention Span Ability Capable of Focused Attention, Capable of Sustained Attention Ability to Follow Commands Able to Follow One Step Commands Safety Awareness Decreased Recall of Precautions,Decreased Ability to Apply Precautions, Underestimates Need for Assistance Cognitive Comments Cognitive Assessment Comments Pt needing safety cues for back precautions. Pt tends to want to direct her care with her . M7 OT- IP Mobility and Balance Start: 09/12/20 09:43 Freq: Status: Active Protocol: Document 09/12/20 10:35 [facility] (Rec: 09/12/20 10:42 [facility] [id number]) OT-Transfer Assessment Sit to and From Stand Sit to and from Stand Standby Assistance Transfers Transfer Ability Standby Assistance,Contact Guard Assistance Technique Transfer Destination Chair,Shower Stall,Toilet Transfer Technique Stand Step Pivot Devices Transfer Assistive Devices Gait Belt,Front Wheeled Walker Comments Mobility Comments CGA to help step over the threshold of the shower. OT- Balance Assessment Sitting Balance and Reactions Static Sitting Balance Ability Normal Dynamic Sitting Balance Ability Good Standing Balance and Reactions Static Standing Balance Ability Good M8 OT- IP Objective Assessments Start: 09/12/20 09:43 Freq: Status: Active Protocol: Document 09/12/20 09:43 [facility] (Rec: 09/12/20 10:01 [facility] [id number]) OT-Muscle Tone Assessment Muscle Tone WNL Yes M9 OT- IP Assessment and Plan Start: 09/12/20 09:43 Freq: Status: Active Protocol: Document 09/12/20 10:35 [facility] (Rec: 09/12/20 10:42 [facility] [id number]) OT Summary Assessment and Plan Potential Rehabilitation Potential Good Analytic Complexity at Evaluation Low Summary OT Impairments Pain,Functional Cognition, Functional Mobility,Dressing, Toileting,Bathing,Toilet Transfers,Shower Transfers Progress Towards Goals Progressing Toward Goals Assessment Summary Pt able to shower and get dressed with her . Pt mainly needing cues to slow down and follow her back precautions. Pt looking to go home today. Discharge Recommendations OT Discharge Recommendations Home with Assistance Home Equipment Needs shower chair Transportation Needs at Discharge Private Vehicle
--- NOTE | 2020-09-12 10:50 | PT.IPTN ---
Current Diagnoses Spondylolisthesis, lumbar region (09/10/20) Spinal stenosis, lumbar region without neurogenic claudication (09/10/20) Surgery Performed Operation Date: 09/10/20 13:15 Actual Procedures p L4-5, L5-S1 TLIF with posterior instrumentation - Ayaka Payan MD Physical Therapy Treatment Note M2 PT-IP Current Condition Start: 09/11/20 12:59 Freq: NEEDED Status: Active Protocol: Document 09/11/20 09:20 AB (Rec: 09/11/20 13:09 AB [email or web address]) Physical Therapy Current Condition Current Condition Evaluation Date 09/11/20 Treatment Diagnosis s/p L4-5,L5S1 fusion/lami; difficulty in walking Onset Date 09/10/20 Precautions Lumbar Precautions Log Roll,No Twisting,Limit Bending,Lifting Restriction of 10 lbs,Gait Belt above Incisional Area M3 PT-IP Subjective Start: 09/11/20 12:59 Freq: NEEDED Status: Active Protocol: Document 09/12/20 10:50 AB (Rec: 09/12/20 11:16 AB [email or web address]) Subjective Physical Therapy Visit Type Type Treatment Note Visit Start Time 10:50 Visit Stop Time 11:05 Total Visit Minutes 15 Number of BENCH WORKER HOLLOW HANDLE Visits 0 Physical Therapy Visit Comments Patient Comments pt is agreeable to do PT Therapy Pain Assessment Pain When Pain Assessed At Rest Pain Present Pain Present Pain Reported Location Back Intensity 3 Scale Used Numeric (0 - 10) Pain Management Techniques Distraction,Modification of Treatment,Re-positioning, Timing of Activity with Medications M4 PT-IP Mobility and Gait Start: 09/11/20 12:59 Freq: NEEDED Status: Active Protocol: Document 09/12/20 10:50 AB (Rec: 09/12/20 11:16 AB [email or web address]) PT-Transfer Assessment Sit to and From Stand Sit to and from Stand Standby Assistance Equipment Transfer Assistive Device Gait Belt,Front Wheeled Walker Orthotic/Prosthetic Devices or Brace: No Comments Mobility Comments pt sitting on chair. spouse in room. spouse was able to put safety belt on pt and assists pt as needed. pt completed sit to stand SBA and ambulated towards the stairs >300 ft using FWW SBA. completed up/down platform step using fWW SBA. completed up/down 3 steps holding on to L rail with B hands SBA to CGA and spouse assisting and instructing pt. pt ambulated back to her room SBA using fWW . Left pt with spouse. Gait Assessment Gait Gait Assistance Required: Standby Assistance Distance (Feet) 300 Able to Maintain Weight Bearing Status Yes During Gait Assistive Devices Assistive Device Gait Belt,Front Wheeled Walker Orthotic/Prosthetic Devices or Brace: No Factors Limiting Gait Function Factors Limiting Gait Function Limited Range of Motion,Pain, Poor Balance Stair Climbing Assessment Evaluation Level of Assist On Stairs Standby Assistance,Contact Guard Assistance Devices Stair Climbing Assistive Devices Left Railing Technique/Endurance Stair Climbing Direction Ascend and Descend Stair Climbing Technique Step to Step Number of Steps Climbed 3 Stair Climbing Set # Repetitions (reps) 1 M5 PT-IP Objective Assessments Start: 09/11/20 12:59 Freq: NEEDED Status: Active Protocol: Document 09/11/20 09:20 AB (Rec: 09/11/20 13:09 AB [email or web address]) Orientation Orientation/Cognition Level of Alertness Lethargic Orientation Name,Place,Situation Language Function Ability No Deficits Noted Safety Awareness Decreased Safety Awareness Memory Description Short Term Impaired Strength Lower Extremity Strength Hip 3+/5 Knee 3+/5 Muscle Tone Muscle Tone WNL Yes M6 PT-IP Treatment Start: 09/11/20 12:59 Freq: NEEDED Status: Active Protocol: Document 09/12/20 10:50 AB (Rec: 09/12/20 11:16 AB [email or web address]) Physical Therapy Treatment Education Education Provided Precautions,Safety M7 PT-IP Assessment and Plan Start: 09/11/20 12:59 Freq: NEEDED Status: Active Protocol: Document 09/12/20 10:50 AB (Rec: 09/12/20 11:16 AB [email or web address]) PT Summary Assessment and Plan Potential Rehabilitation Potential Good Summary Impairments Pain,ROM,Strength,Balance, Coordination,Sensation,Tone, Cognition,Bed Mobility, Transfers,Gait,Activity Tolerance Progress Towards Goals Progressing Toward Goals Assessment Summary pt requiring SBA with mobility using FWW. spouse was able to assist pt safely. pt may go home when medically stable. Goals Bed Mobility Goal Standby Assistance Transfer Goal Standby Assistance,Front Wheeled Walker Gait Goal Standby Assistance,Front Wheel Walker Gait Distance 150 Other Goals up/down 3 platform steps CGA up/down 8 steps L rail ascending CGA Days to Meet Goals 5 Frequency of Treatment Frequency Of Treatment Twice a Day Treatment Plan Physical Therapy Treatment Plan Bed Mobility Training,Transfer Training,Gait Training, Therapeutic Exercise,Balance Retraining,Post Op Education, Discharge Planning,Hot or Cold Pack,Neuromuscular Re-ed, Coordination Retraining,Manual Therapy Precautions Lumbar Precautions Log Roll,No Twisting,Limit Bending,Lifting Restriction of 10 lbs,Gait Belt above Incisional Area Recommendations To Nursing Amount of Assist Needed 1 Person Assist Discharge Recommendations PT Discharge Recommendations Home with Assistance Transportation Needs at Discharge Private Vehicle
[2020-09-12 11:00] VITALS: BP 109/62; PULSE 85; RESP 15; TEMP 36.6; O2SAT 100
--- NOTE | 2020-09-12 14:42 | P.DS_ITS ---
History of Present Illness History of Present Illness Date Patient Seen: 09/12/20 Time Patient Seen: 14:42 Chief complaint: Translaminar Interbody Fusion/Laminotomy Narrative: Referred to previous HPI. Discharge Providers Provider Date of admission: 09/10/20 11:02 Discharge Date: 09/12/20 Consults: 09/10/20 18:53 Consult to Occupational Therapy Evaluate & Treat Comment: Physician Instructions: Evaluate and treat Consult to Physical Therapy Evaluate & Treat Comment: Physician Instructions: Evaluate and Treat Discharge provider: Herbie Damon PA-C Summary Hospital Course Discharge Diagnosis: L4-5, L5-S1 spinal stenosis L4-5, L5-S1 spondylosis with radiculopathy Status post L4-5, L5-S1 Postero-lateral and posterior interbody fusion, L4-5, L5-S1 interbody cage placement, L4-5, L5-S1 decompressive laminectomy with bilateral facetecomies, L4-5, L5-S1 Posterior segmental instrumentation, [place] of bone marrow from iliac crest, Utilization of microsurgical technique and operating microscope Hospital Course: Patient was admitted to the hospital following the above-listed procedure for the above-listed diagnosis. Following the procedure the patient has been convalescing appropriately in her pain has been managed with the current pain management regimen. Throughout the course of her stay in the hospital the patient has denied fever, nausea, chills, shortness of breath, chest pain, or urinary retention. The dressing over the incision site has remained intact and the skin surrounding the incision site has been free of erythema, warmth, induration, or discharge. Patient has successfully worked with physical therapy on ambulation with the assistance of a front wheeled walker. Sequential compression devices have been used for DVT prophylaxis. Status at Discharge Cognitive/behavioral status at discharge: oriented Functional status at discharge: uses cane/walker Overall status at discharge: patient is progressing back to baseline Exam Vital Signs (past 8 hours): - 09/12/20 11:00 Temperature 97.8 F Pulse Rate 85 Respiratory Rate 15 Blood Pressure 109/62 Pulse Oximetry 100 Oxygen Delivery Method Room Air Oxygen Flow Rate 0 Narrative Exam Narrative: Pleasant 50-year-old female postop day 2. Patient is resting comfortably in bed, is in no acute distress, is alert and oriented x3. Skin is warm and dry, and the skin surrounding the incision site is free of erythema, warmth, induration, or discharge. Dressing over the incision is free of strike through is clean and dry. Good sensation appreciated throughout the bilateral lower extremities to light touch. Ankle dorsiflexion, plantar flexion, eversion, inversion performed bilaterally without difficulty or discomfort. Calves are soft nontender, negative Homans sign. Capillary refill less than 2 seconds, palpable pulses appreciated. Noted other signs of DVT appreciated. Const General: cooperative, healthy appearing and comfortable Resp Effort & Inspection: normal respiratory effort and able to speak in complete sentences Skin General: no rashes or lesions noted Objective Labs Result Diagrams: 09/11/20 20:17 Labs: Laboratory Results - last 24 hr 09/11/20 20:17 Hgb 10.5 L Hct 31.6 L PFSH Medical History Arthritis Depression Easy bruisability Ectopic GI bleed (2015) Iron deficiency anemia Kidney stones Pneumonia PTSD (post-traumatic stress disorder) Surgical History History of hysterectomy (2005) Hx of appendectomy Hx of bariatric surgery (2009) Hx of lithotripsy Hx of umbilical hernia repair Social History household members: spouse and children Smoking Status: Current some day smoker alcohol intake: former Discharge Assessment & Plan Assessment and Plan Assessment: Patient is doing well. Plan of Treatment: Patient is to remain weight-bearing as tolerated with the assistance of a front wheel walker. Current pain management regimen is to be continued as it has adequately controlled the patient's pain level at this time. Following disc harge from the hospital the patient will follow up in clinic in 2 weeks for her 1st postoperative appointment. Patient is to refrain from any bending, twisting, or lifting in excess of 10 lb. Dressing over the incision site is to be changed as needed if it is to become damaged or soiled. Refrain from placing topical ointments over the incision site. Patient is to contact the clinic with any concerns or questions. Any signs of increased pain, swelling, warmth, or discharge from around the incision site should be reported to the clinic. Discharge Plan Discharge Plan Patient Disposition: Home Provider Discharge Comment: Patient cleared for discharge pending PT clearance. Discharge orders & Medications Prescriptions: New acetaminophen 325 mg Tablet 650 mg PO Q6HR PRN (Reason: Pain, Mild (1-3)) Qty: 90 RF: 0 ibuprofen 600 mg Tablet 600 mg PO Q6HR PRN (Reason: Fever/Mild Pain (1-3)) Qty: 90 RF: 0 oxycodone 5 mg Tablet 10 mg PO Q3HR PRN (Reason: Pain, Severe (7-10)) Qty: 42 RF: 0 hydroxyzine pamoate 25 mg Capsule 25 mg PO Q4HR PRN (Reason: Nausea And Vomiting) Qty: 60 RF: 0 Continued lorazepam [Ativan] 0.5 mg tablet 1 mg PO PRN PRN (Reason: Anxiety) Qty: 0 RF: 0 quetiapine 200 mg Tablet 200 mg PO BEDTIME RF: 0 quetiapine 400 mg Tablet Extended Release 24 Hr 400 mg PO BEDTIME RF: 0 lamotrigine 200 mg Tablet 200 mg PO BEDTIME RF: 0 sertraline 100 mg Tablet 100 mg PO BEDTIME RF: 0 Diet/Activity/Treatments Diet: Diet as Tolerated Activity: Weight-bearing as tolerated with the assistance of a front wheeled walker. Avoid bending, twisting, lifting in excess of 10 lb. Skin/Wound/Dressing Care Report to your healthcare provider any signs of infection, such as:: chills, fever, night sweats, increased pain, unusual drainage and unusual redness Dressing: Dressing is to remain intact. May be changed if it becomes damaged or soiled. Other wound treatment: Avoid placing topical ointments over the incision site. Visit Report/Discharge Packet Instructions: DI for Heart Failure, DI for Prescription Opioid Use, DI for Transforaminal Lumbar Interbody Fusion Stand Alone Forms: Surgery Discharge Quality VTE Deep Vein Thrombosis/Pulmonary Embolism Present on Admission: No
--- NOTE | 2020-09-12 15:10 | PC.NURSE ---
discharged to home - reviewed at length with both pt and spouse the after care plan - all questions answered to their satisfaction and medicated prior to discharge-
== END 2020-09-12 15:00 | disposition home or self-care (01) | DRG 455 ==
PROVIDERS: Admitting Provider Orthopaedic Surgery Orthopaedic Surgery of the Spine; Referring Provider Orthopaedic Surgery Orthopaedic Surgery of the Spine; Visit Provider Orthopaedic Surgery Orthopaedic Surgery of the Spine
PROC: 0SG00AJ Fusion of Lumbar Vertebral Joint with Interbody Fusion Device, Posterior Approach, Anterior Column, Open Approach (ICD-10-PCS; principal; 2020-09-10 13:15)
DX: M48.061 Spinal stenosis, lumbar region without neurogenic claudication (principal); M48.07 Spinal stenosis, lumbosacral region; M43.16 Spondylolisthesis, lumbar region; F32.9 Major depressive disorder, single episode, unspecified; E66.9 Obesity, unspecified; M47.27 Other spondylosis with radiculopathy, lumbosacral region; M62.838 Other muscle spasm; Z72.0 Tobacco use
CPT/HCPCS: 72100; 76000; 85014; 85018; 97116; 97162; 97165; 97530; 97535; C1776; C9290; J0330; J0690; J1100; J1170; J1200; J2060; J2250; J2405; J2704; J3010